=== PATIENT | male | born 1955 | race African-American/Black ===

== ENCOUNTER 2019-06-26 18:41 | Emergency (ER) | payer OTHER ==
[~2019-06-26] VITALS: Ht 182.9 cm; Wt 91.0 kg
[2019-06-26] MEDS ORDERED: IBUPROFEN 600MG TABLET PO ONE (20:15)
[2019-06-26 20:23] VITALS: BP 165/87
== END 2019-06-26 20:26 | disposition home or self-care (01) ==
LOC: ER 18:41
DX: M54.31 Sciatica, right side (principal); M25.551 Pain in right hip; V49.49XA Driver injured in collision with other motor vehicles in traffic accident, initial encounter; Y93.89 Activity, other specified; Y92.89 Other specified places as the place of occurrence of the external cause; Y99.8 Other external cause status
CPT/HCPCS: 99283